=== PATIENT | female | born 1995 | race Caucasian/White ===

== ENCOUNTER 2020-07-20 15:11 | Outpatient (REF) | payer OTHER, SELFPAY ==
[2020-07-20 18:07] LABS: Influenza A PCR NEGATIVE (Negative); Influenza B PCR NEGATIVE (Negative); Resp Syncy Virus RNA Qual PCR NEGATIVE (Negative); SARS COV2 PCR INHOUSE POSITIVE (Negative)
== END 2020-07-20 15:12 | disposition home or self-care (01) ==
LOC: HO.LAB 15:11
PROVIDERS: Visit Provider Nurse Practitioner Family
DX: R50.9 Fever, unspecified (principal)
CPT/HCPCS: 0241U

== ENCOUNTER 2021-07-14 13:30 | Emergency (ER) | payer OTHER, SELFPAY ==
[2021-07-14 13:36] VITALS: BP 132/86; PULSE 104; RESP 18; TEMP 36.9; O2SAT 98; BMI 28.1
[2021-07-14 13:57] LABS: Strep A Nucleic Acid Negative (Negative)
[2021-07-14 14:32] LABS: Influenza A PCR NEGATIVE (Negative); Influenza B PCR NEGATIVE (Negative); Resp Syncy Virus RNA Qual PCR NEGATIVE (Negative); SARS COV2 PCR INHOUSE NEGATIVE (Negative)
[2021-07-14 15:28] VITALS: BP 124/80; PULSE 101; RESP 18; TEMP 36.6; O2SAT 97; O2SAT 99
--- NOTE | 2021-07-14 15:28 | ED.URI ---
HPI - URI/Sore Throat General Chief Complaint: Upper Respiratory Symptoms Stated Complaint: cough Time Seen by Provider: 07/14/21 15:26 History of Present Illness HPI Narrative: Patient is a 25-year-old female presents today with coughing upper respiratory symptoms that is been ongoing for about a week. Positive generalized malaise. Patient received her coronavirus vaccine over 6 months ago just received the COVID booster 2 days ago. No diaphoresis. No fever. Positive generalized malais. patient from home. Related Data Previous Rx's Medication Instructions Recorded cetirizine 10 mg capsule (Zyrtec) 10 mg PO DAILY #30 cap 07/20/20 prednisone 20 mg tablet 20 mg PO DAILY 9 Days #18 tab MDD 07/20/20 3 for 3days;2 for 3 days;1 3da azithromycin 250 mg tablet See Rx Instructions .ROUTE 07/14/21 .COMPLEX #6 tab dextromethorphan-guaifenesin 5 10 ml PO Q4-8H PRN #118 ml 07/14/21 mg-100 mg/5 mL oral liquid (Robitussin Cough-Chest Congestion DM) Allergies Allergy/AdvReac Type Severity Reaction Status Date / Time enivormental allergies Allergy Unknown Uncoded 09/27/18 00:00 Review of Systems Review of Systems: Positive coughing positive upper respiratory symptoms Yes all other systems are reviewed and are negative [facility] Past Medical History Attestation statement: The following information was validated with the patient. Social History Social History Advance Directives: No Advance Directives Information Provided: Yes Physical Exam Vital Signs: Vital Signs: Last Vital Signs Temp 98.5 F 07/14/21 13:36 Pulse 104 H 07/14/21 13:36 Resp 18 07/14/21 13:36 BP 132/86 07/14/21 13:36 Pulse Ox 98 07/14/21 13:36 BMI result Body Mass Index 28.1 Appearance: Alert. Oriented X3. No acute distress. Eyes: Pupils equal, round and reactive to light. ENT: Pharynx normal. Neck: Normal inspection. Neck supple. No lymph nodes noted. No crepitus CVS: Normal heart rate and rhythm. Pulses normal. Normal S1 and S2 Respiratory: No respiratory distress. Breath sounds normal. No Wheezing. No rales Abdomen: Soft and nontender. No rigidity. No distention. good BS x4 Skin: Skin warm and dry. Normal skin color. Normal skin turgor. Extremities: No lower extremity edema. Neurovascular intact to all extremities. No Lacerations. No Rash Neuro: Oriented X 3. No motor deficit. No sensory deficit. Moving all extermities. No slurred speech MDM - URI/Sore Throat MDM Narrative Medical decision making narrative: Positive coughing positive upper respiratory symptoms. COVID test was negative. Patient in no distress. O2 sat is normal. Will prescribe azithromycin. Cough medication prescribed. Will discharge patient home. In stable condition. Differential Diagnosis Differential diagnosis: Likely upper respiratory infection Medical Records Attestation: I reviewed the patient's medical records. Lab Data Attestation: I reviewed the patient's lab results. Labs: Lab Results 07/14/21 07/14/21 Range/Units 13:41 13:41 Influenza Type A (PCR) NEGATIVE (Negative) Influenza Type B (PCR) NEGATIVE (Negative) RSV RNA Qual (PCR) NEGATIVE (Negative) SARS-CoV-2 RNA (RT-PCR) NEGATIVE (Negative) S. pyogenes GrpA CHASITY Negative (Negative) Discharge Plan Discharge Clinical Impression: Upper respiratory infection, Bronchitis Patient Disposition: Home, Self-Care Instructions: Upper Respiratory Infection (ED) Prescriptions: New azithromycin 250 mg tablet See Rx Instructions .ROUTE .COMPLEX Qty: 6 RF: 0 Robitussin Cough-Chest [place]o DM 5-100 mg/5 mL liquid 10 ml PO Q4-8H PRN (Reason: cough) Qty: 118 RF: 0 No Action Zyrtec 10 mg capsule 10 mg PO DAILY Qty: 30 RF: 0 prednisone 20 mg tablet 20 mg PO DAILY MDD 3 for 3days;2 for 3 days;1 3da 9 Days Qty: 18 RF: 0 Referrals: Telma Rangel MD [Primary Care Provider] - 2 days
== END 2021-07-14 15:53 | disposition home or self-care (01) ==
PROVIDERS: Emergency Provider Emergency Medicine Emergency Medical Services; PCP Internal Medicine
DX: J06.9 Acute upper respiratory infection, unspecified (principal); J40 Bronchitis, not specified as acute or chronic; Z20.822 Contact with and (suspected) exposure to COVID-19; R53.81 Other malaise
CPT/HCPCS: 0241U; 36415; 87651; 99283; 99284

== ENCOUNTER 2023-04-21 04:32 | Emergency (ER) | payer OTHER, SELFPAY ==
[2023-04-21 05:08] LABS: Hematocrit 38.6 % (37.0-47.0); Hemoglobin 13.5 g/dl (12.0-16.0); Mean Corpuscular Hemoglobin 31.8 pg (27.0-33.0); Mean Platelet Volume 9.1 fL (9.4-12.3); Platelet Count 317 X10*3/uL (160-400); Red Blood Count 4.24 X10*6/uL (4.20-5.50); Red Cell Distribution Width 12.8 % (11.0-16.0); White Blood Count 9.1 X10*3/uL (4.8-10.8)
[2023-04-21 05:09] LABS: Appearance Urine Clear; Color Urine Yellow; Glucose Urine UA Negative (Negative); Leukocyte Esterase Urine Small (1+) (Negative); Nitrite Urine Negative (Negative); Specific Gravity - Urine <= 1.005 (1.005-1.025); UMIC TRIGGER UACC YES; Urine Blood Negative (Negative); Urine Ketones Negative (Negative); Urine Protein Negative (Neg-Trace)
--- NOTE | 2023-04-21 05:10 | MHC.EDTECH ---
Patient came in by ambulance and was changed into crisis attire, security at bedside and belongings list completed and is locked in the POD IN LAUNDRY ROOM. Vitals were completed and labs and a urine specimen were colleted and sent to lab. Patient ambulated to bathroom with 1 assist and urinated. 1-1 sitter at bedside for safety
[2023-04-21 05:11] LABS: Bacteria Urine None Seen (None Seen); Hyaline Casts Urine 0-2 /LPF (0-2); RBC Urine 0-2 /HPF (0-2); Squamous Epithelial Cell Urine 0-2 /HPF (0-2); UACC Culture Trigger YES
[2023-04-21 05:18] LABS: Amphetamine Screen Urine Not Detected (Not Detect); Barbiturates, Urine Not Detected (Not Detect); Benzodiazepines Screen Urine Not Detected (Not Detect); Cannabinoid Screen Urine Not Detected (Not Detect); Cocaine Screen Urine Not Detected (Not Detect); Fentanyl, urine Not Detected (Not Detect); Opiate Screen Urine Not Detected (Not Detect); Phencyclidine Screen Urine Not Detected (Not Detect)
[2023-04-21 05:19] LABS: COVID-19 Test Negative (Negative); IDNOW Serial# 6674DD1D
[2023-04-21 05:23] LABS: Ethanol 234 mg/dL
[2023-04-21 05:27] LABS: Alanine Aminotransferase 20 U/L (0-31); Albumin Level 4.1 g/dL (3.5-5.0); Alkaline Phosphatase 80 U/L (39-117); Anion Gap 14 (12-20); Aspartate Amino Transferase 25 U/L (5-31); Bilirubin Total 0.2 mg/dL (0.0-1.0); Blood Urea Nitrogen 10 mg/dL (9-16); Carbon Dioxide 21 mmol/L (22-29); Chloride 113 mmol/L (96-108); Estimated Glomerular Filt Rate > 60; Glucose Random 108 mg/dL (60-115); Potassium 3.7 mmol/L (3.3-5.1); Sodium 144 mmol/L (135-145); Total Protein 7.6 g/dL (6.5-8.0)
[2023-04-21 05:31] VITALS: BP 109/76; PULSE 98; RESP 16; TEMP 36.8; O2SAT 97; BMI 27.2
[2023-04-21 06:31] VITALS: RESP 18
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
--- NOTE | 2023-04-21 07:41 | PC.NURSE ---
pt sleeping comfortably. respirations even and unlabored. sitter at bedside. pt waiting for careteam.
[2023-04-21 10:44] VITALS: BP 120/63; PULSE 116; RESP 18; TEMP 36.7; O2SAT 100
--- NOTE | 2023-04-21 10:47 | PC.NURSE ---
pt a&ox3. respirations even and unlabored. when asking pt if they have thoughts of self harm pt states i do not know . pt currently on phone with mother with tears in eyes and raising voice stating i cant do this anymore . sitter at bedside.
[2023-04-21] MEDS: LORazepam 1 MG TABLET PO (11:31)
[2023-04-21] MEDS: Acetaminophen 325 MG TABLET 975 MG PO (11:31)
[2023-04-21 14:00] VITALS: RESP 16
--- NOTE | 2023-04-21 15:38 | PC.NURSE ---
patient provided with toothbrush, toothpaste and mouthwash
--- NOTE | 2023-04-21 15:39 | PC.NURSE ---
Mom is going to take cell phone back home
--- NOTE | 2023-04-21 16:29 | PC.NURSE ---
respirations even and unlabored. pt currently sleeping. sitter at bedside. waiting care team consult.
[2023-04-21 16:42] VITALS: BP 137/82; PULSE 103; RESP 16; O2SAT 98
--- NOTE | 2023-04-21 16:43 | PC.NURSE ---
Ricardo from CARE team talking with patient at this time. Pt provided with activity booklet
--- NOTE | 2023-04-21 17:51 | PC.NURSE ---
pt mother at bedside. pt using activity book at this time.
== END 2023-04-21 19:01 | disposition home or self-care (01) ==
PROVIDERS: Emergency Provider Emergency Medicine
DX: R45.851 Suicidal ideations (principal); F10.120 Alcohol abuse with intoxication, uncomplicated; Y90.7 Blood alcohol level of 200-239 mg/100 ml; F32.A Depression, unspecified; Z20.822 Contact with and (suspected) exposure to COVID-19; Z79.899 Other long term (current) drug therapy
CPT/HCPCS: 36415; 80053; 80307; 81001; 85027; 87086; 87088; 87186; 87635; 99285; S9485